=== PATIENT | female | born 1965 | race Caucasian/White ===

== ENCOUNTER 2020-02-20 15:31 | Outpatient (CLI) | payer OTHER, SELFPAY ==
--- NOTE | ~2020-02-20 | XR_ITS ---
XR foot LT min 3V DATE: 02/20/2020 15:48 INDICATION: Left foot contusion, pain TECHNIQUE: 4 views COMPARISON: None FINDINGS: No fracture or dislocation, periosteal reaction or bone destruction. IMPRESSION: Negative Reviewed, dictated and finalized at location A. IMPRESSION: Negative
== END 2020-02-20 15:32 | disposition home or self-care (01) ==
PROVIDERS: PCP Family Medicine; Visit Provider Family Medicine
DX: S90.30XA Contusion of unspecified foot, initial encounter (principal); R26.2 Difficulty in walking, not elsewhere classified
CPT/HCPCS: 73630

== ENCOUNTER 2025-05-14 09:26 | Outpatient (CLI) | payer OTHER, SELFPAY ==
[2025-05-14 10:05] LABS: Hematocrit 35.2 % (37.0-47.0); Hemoglobin 11.8 g/dL (12.0-15.0); Immature Granulocyte Percent A 0.3 % (0-0.5); Lymphocytes Absolute Auto 2.21 K/mm3 (0.9-3.2); Mean Corpuscular HGB Conc 33.5 g/dl (32-36); Mean Corpuscular Hemoglobin 28.9 pg (26-34); Mean Corpuscular Volume 86.3 fl (80-100); Nucleated Red Blood Cells Absolute Auto 0.000 K/mm3 (0.0-0.012); Nucleated Red Blood Cells Perc 0.0 % (0.0-0.2); Platelet Count Result 269 k/mm3 (150-375); Red Blood Count 4.08 M/mm3 (4.2-5.4); White Blood Count 8.0 K/mm3 (4.5-10.0)
--- OUTSIDE RECORDS SUMMARY | 2025-05-14 10:10 | XMS_ITS | Clinical Summary ---
Author Organization [facility] Address [facility] access [facility] [place] [address] Care Team Providers Care Science Writer Name Role Phone Unavailable Primary Care Provider Unavailabl e Social History Tobacco Use Types Packs/Day Years Used Date Smoking Tobacco: Never Assessed Comments Unknown Sex and Gender Information Value Date Recorded Sex Assigned at Not on file Legal Sex Female 4:58 PM CDT Gender Identity Not on file Sexual Orientation Not on file Plan of Treatment Health Maintenance Due Date Last Done Comments Cervical Cancer Screening Pa p Smear (Age 30 to 64) Every 3 Years 1965 Colorectal Cancer Screening Colonoscopy (10 Years) 1965 Annual Physical 1968 Hepatitis C 1983 DTaP, Tdap and Td Vaccines ( 1 - Tdap) 1984 Cervical Cancer Screening Pa p with HPV Testing (Age 30 to 64) Every 5 Years 1995 Cervical Cancer Screening with HPV 1995 Mammogram Screening 2005 Pneumococcal Vaccine: 50+ Ye ars (1 of 1 - PCV) 2015 Zoster Vaccines (1 of 2) 2015 COVID-19 Vaccine ( - 2024-2 6 season) 2025 Influenza Adult (#1) 2025 RSV Immunization or 60+ Years (1 - 1-dose 75+ series) 2040 Hepatitis A Vaccines Aged Out No long er eligible based on patient's age to complete this topic Meningococcal B Vaccine Aged Out No l onger eligible based on patient's age to complete this topic Meningococcal Vaccine Aged Out No areli palmer eligible based on patient's age to complete this topic RSV Immunizations Under 20 Months Aged Out No longer eligible based on patient's age to complete this topic Insurance
[2025-05-14 10:26] LABS: Alanine Aminotransferase 23 U/L (6-35); Albumin Level 4.4 g/dL (3.5-5.1); Alkaline Phosphatase 97 U/L (38-126); Anion Gap 11 mmol/L (4-12); Aspartate Amino Transferase 32 U/L (14-36); Bilirubin,Total 0.6 mg/dL (0.2-1.3); Blood Urea Nitrogen 12 mg/dL (7-17); Calcium 9.3 mg/dL (8.4-10.2); Carbon Dioxide 23 mmol/L (22-30); Chloride 103 mmol/L (98-107); Cholesterol 239 mg/dL (0-200); Estimated Glomerular Filt Rate > 60; Glucose 99 mg/dL (65-110); HDL Direct 57 mg/dL; Potassium 4.0 mmol/L (3.4-5.0); Sodium 137 mmol/L (137-145); Total Protein 8.0 g/dL (6.3-8.2); Triglycerides 149 mg/dL (<150)
== END 2025-05-14 09:27 | disposition home or self-care (01) ==
PROVIDERS: PCP Family Medicine; Visit Provider Student in an Organized Health Care Education/Training Program
DX: Z13.220 Encounter for screening for lipoid disorders (principal); I10 Essential (primary) hypertension
CPT/HCPCS: 36415; 80053; 80061; 85025

== ENCOUNTER 2025-05-25 12:20 | Outpatient (CLI) | payer OTHER, SELFPAY ==
--- NOTE | ~2025-05-25 | MR_ITS ---
EXAMINATION: MR brain/brain stem wo con DATE: 05/25/2025 13:06 INDICATION: Cerebral infarction TECHNIQUE: Magnetic resonance imaging (MRI) of the brain and brainstem was performed without intravenous contrast. Sequences included sagittal and axial T1-weighted SE, axial diffusion-weighted FS SE, axial 3D SWAN, axial T2-weighted FLAIR, and axial T2-weighted FSE. Apparent diffusion coefficient (ADC) maps were created. COMPARISON: 09/11/11 FINDINGS: There are no areas of restricted diffusion to suggest acute infarction. No intracranial hemorrhage or abnormal intracranial mass lesion. There are no intraparenchymal signal abnormalities seen on the other pulse sequences. The ventricles are symmetric and normal in size. There are no abnormal extra-axial fluid collections. Flow voids are seen in the cerebral arteries on the T2- weighted sequences consistent with their expected patency. Fluid filling an agger nasi cell. Remainder of the paranasal sinuses are clear. Visualized orbits and soft tissues are unremarkable. IMPRESSION: 1. Normal for age brain. No acute intracranial process. Reviewed, dictated and finalized at location A. TRANSFER CLERK
== END 2025-05-25 12:21 | disposition home or self-care (01) ==
PROVIDERS: PCP Family Medicine
DX: I63.9 Cerebral infarction, unspecified (principal)
CPT/HCPCS: 70551

== ENCOUNTER 2025-05-30 09:57 | Outpatient (CLI) | payer OTHER, SELFPAY ==
--- NOTE | ~2025-05-30 | US_ITS ---
EXAMINATION: US carotid duplex BI DATE: 05/30/2025 10:40 INDICATION: Cerebral infarction TECHNIQUE: Grayscale, color Doppler, and pulsed Doppler images of the cervical carotid arteries were obtained. The degree of vessel stenosis is placed in one of the following categories: normal, <50%, 50-69%, >=70% but less than near- occlusion, near-occlusion, or total occlusion. Note that percent stenosis relative to normal distal artery lumen diameter is indirectly measured from velocity measurements as described by Josemanuel, et al. Radiology 2003; 229:340-346. COMPARISON: None. FINDINGS: RIGHT: The right common carotid artery (CCA) peak systolic velocity (PSV) is 60 cm/s. The right internal carotid artery (ICA) PSV is 63 cm/s. The right ICA end- diastolic velocity (EDV) is 25 cm/s. The right ICA/CCA PSV ratio is 1.3. Grayscale and color Doppler images yield an estimate of <50% diameter reduction from plaque in the ICA. The external carotid artery (ECA) PSV is 66 cm/s. There is antegrade flow in the right vertebral artery. LEFT: The left CCA PSV is 42 cm/s. The left ICA PSV is 59 cm/s. The left ICA EDV is 24 cm/s. The left ICA/CCA PSV ratio is 1.4. Grayscale and color Doppler images yield an estimate of <50% diameter reduction from plaque in the ICA. The ECA PSV is 49 cm/s. There is antegrade flow in the left vertebral artery. IMPRESSION: 1. <50% stenosis from minimal plaque in the right internal carotid artery. 2. <50% stenosis from minimal plaque in the left internal carotid artery. Reviewed, dictated and finalized at location A. N CLEANER
== END 2025-05-30 09:58 | disposition home or self-care (01) ==
PROVIDERS: PCP Family Medicine
DX: I65.23 Occlusion and stenosis of bilateral carotid arteries (principal); I63.9 Cerebral infarction, unspecified
CPT/HCPCS: 93880

== ENCOUNTER 2025-06-01 14:50 | Outpatient (CLI) | payer OTHER, SELFPAY ==
--- NOTE | ~2025-06-01 | CT_ITS ---
EXAMINATION:CT lung screening DATE: 06/01/2025 15:07 INDICATION: 22 pack year history smoking smoking, prior to quitting. TECHNIQUE: Computed tomography (CT) of the chest was performed without intravenous contrast. Automated exposure control and iterative reconstruction technique were employed. The dose-length product (DLP) was 49.90 mGy-cm. COMPARISON: None previous available FINDINGS: Moderate centrilobular pattern of emphysema lungs. Calcified granuloma right lung base. No evidence of noncalcified lung nodules are seen. Minimal linear fibrosis left lung base. Cardiomegaly with small pericardial effusion measuring up to 7 mm in width. IMPRESSION: 1. Emphysema of lungs. Calcified granuloma right lower lobe. Mild linear fibrotic changes of the left lower lobe with minimal traction bronchiectasis. Continue annual screening. Lung RADS category 2 2. Cardiomegaly. Small pericardial effusion. Reviewed, dictated and finalized at location T. RTING OPERATOR IMPRESSION: 1. Emphysema of lungs. Calcified granuloma right lower lobe. Mild linear fibrot ic changes of the left lower lobe with minimal traction bronchiectasis. Continu e annual screening. Lung RADS category 2 2. Cardiomegaly. Small pericardial effusion.
--- OUTSIDE RECORDS SUMMARY | 2025-06-01 14:55 | XMS_ITS | Clinical Summary ---
Author Organization [facility] Address [facility] [place] [address] Care Team Providers Care Electronic Science Teacher Name Role Phone Unavailable Primary Care Provider [...]
== END 2025-06-01 14:51 | disposition home or self-care (01) ==
PROVIDERS: PCP Family Medicine; Visit Provider Student in an Organized Health Care Education/Training Program
DX: Z12.2 Encounter for screening for malignant neoplasm of respiratory organs (principal); Z87.891 Personal history of nicotine dependence
CPT/HCPCS: 71271

== ENCOUNTER 2025-06-14 08:26 | Outpatient (CLI) | payer OTHER, SELFPAY ==
--- OUTSIDE RECORDS SUMMARY | 2025-06-14 08:47 | XMS_ITS | Clinical Summary ---
Author Organization [facility] Address [facility] [place] [address] Care Team Providers Care Vector Control Specialist Name Role Phone Unavailable Primary Care Provider [...]
--- OUTSIDE RECORDS SUMMARY | 2025-06-14 08:47 | XMS_ITS | Clinical Summary ---
Author Organization [facility] Address [address] [address] Care Team Providers Care Export Sales Assistant Name Role Phone Unavailable Primary Care Provider Unavailabl e Source Comments [facility],non-owned Affiliates and Associated Physician Practices is amultiple site organization consisting of ambulatory clinics and hospital sitesin [place], [place], [place] and [place]. This disclosure is being madepursuant to the Care Everywhere program and may not contain all information available regarding this patient. Last updated 18.[facility] Encounters Date Type Department Care Team Description 06/06/2025 2:15 PM EDUCATION DIAGNOSTICIAN - 06/06/2025 11:59 PM EDUCATION DIAGNOSTICIAN Hospital Encounter [facility] [address] [place] [address] None, Physician Discharge Disposition: Home or Self Care from Last 3 Months Social History Tobacco Use Types Packs/Day Years Used Date Smoking Tobacco: Never Assessed Comments Unknown Sex and Gender Information Value Date Recorded Sex Assigned at Not on file Legal Sex Female 2:01 PM EDUCATION DIAGNOSTICIAN Gender Identity Not on file Sexual Orientation Not on file Plan of Treatment Health Maintenance Due Date Last Done Comments COLOGUARD (AGES 45-75) - COL ON CA SCREENING 1965 COLON MONITORING 1965 COLONOSCOPY - COLON CA SCREENING 1965 CT COLONOGRAPHY - COLON CA SCREENING 1965 Colorectal Cancer Screening 1965 FIT - COLON CA SCREENING 1965 FLEX SIG - COLON CA SCREENING 1965 LIPID TESTING 1965 MAMMOGRAM 1965 HIV SCREENING 1980 HEPATITIS C SCREENING 04/22/1983 DTAP/TDAP/TD VACCINES (1 - Tdap) 1984 PAP SMEAR 1986 Cervical Cancer Screening 1995 PAP with HPV 1995 PNEUMOCOCCAL VACCINE 50+ (1 of 1 - PCV) 2015 ZOSTER VACCINE (1 of 2) 2015 DEPRESSION SCREENING 07/12/2024 COVID-19 VACCINE (1 - 2024-2 6 season) 2025 INFLUENZA VACCINE (#1) 2025 Respiratory Syncytial Virus (RSV) Vaccine Pt: or over 60 yrs (1 - 1-dose 75+ series) 2040 HEPATITIS B VACCINE Aged Out No longe r eligible based on patient's age to complete this topic HIB VACCINE Aged Out No longer eligi ble based on patient's age to complete this topic HPV VACCINE Aged Out No longer eligi ble based on patient's age to complete this topic MENINGOCOCCAL (Group B) VACC INE SHARED DECISION-MAKING Aged Out No longer eligibl e based on patient's age to complete this topic MENINGOCOCCAL GROUPS A/C/Y/W VACCINE Aged Out No longer eligible b ased on patient's age to complete this topic Procedures Procedure Name Priority Date/Time Associated Diagnosis Comments FTA ANTIBODY Routine 06/06/2025 2:27 PM EDUCATION DIAGNOSTICIAN Early stage nonexudative age-related macular degeneration of right eye ANGIOTENSIN CONVERTING ENZYME BLOOD Routine 06/06/2025 2:27 PM EDUCATION DIAGNOSTICIAN Early stage nonexudative age-related macular degeneration of right eye LYME DISEASE AB IGG WB Routine 06/06/2025 2:27 PM EDUCATION DIAGNOSTICIAN Early stage nonexudative age-related macular degeneration of right eye BARTONELLA HENSELAE IGG/IGM AB PANEL Routine 06/06/2025 2:27 PM EDUCATION DIAGNOSTICIAN Early stage nonexudative age-related macular degeneration of right eye from Last 3 Months Results * LYME DISEASE AB IGG WB (06/06/2025 2:27 PM EDUCATION DIAGNOSTICIAN) Borrelia burgdorferi Antibody IgG WB Negative Negative 06/09/2025 3:29 PM EDUCATION DIAGNOSTICIAN [facility] ([facility]) Comment: Band(s) present: 66, 41 kDa (Insufficient number of bands for positive result) INTERPRETIVE INFORMATION: B. burgdorferi IgG Immunoblot For this assay, a positive result is reported when any 5 or more of the following 10 bands are present: 18, 23, 28, 30, 39, 41, 45, 58, 66, or 93 kDa. All other banding patterns are reported as negative. Performed By: [facility] [address] [place] [address] Warehouse Laborer: Luis Alberto Jacob MD, PhD CLIA Number: [id number] Blood BLOOD SPECIMEN / Unknown Venipuncture / Unknown 06/06/2025 2:27 PM EDUCATION DIAGNOSTICIAN 06/06/2025 2:36 PM EDUCATION DIAGNOSTICIAN Sigrid Briggs MD LAB - SEROLOGY ORDERABLES Final Result [facility] [employer] ([facility]) [address] [place] [address] * (ABNORMAL) BARTONELLA HENSELAE ANTIBODY PANEL (06/06/2025 2:27 PM EDUCATION DIAGNOSTICIAN) [facility] Bartonella henselae Antibody IgG >1:1024(H ) <1:64 06/12/2025 12:33 PM EDUCATION DIAGNOSTICIAN [facility] [employer] ([facility]) Comment: INTERPRETIVE INFORMATION: Bartonella henselae Ab, IgG Less than 1:64 ....... Negative: No significant level of Bartonella henselae IgG antibody detected. 1:64 - 1:128 ......... Equivocal: Questionable presence of Bartonella henselae IgG antibody detected. Repeat testing in 10-14 days may be helpful. 1:256 or greater ..... Positive: Presence of IgG antibody to Bartonella henselae detected, suggestive of current or past infection. A low positive suggests past exposure or infection, while high positive results may indicate recent or current infection, but are inconclusive for diagnosis. Seroconversion between acute and convalescent sera is considered strong evidence of recent infection. The best evidence for infection is significant change on two appropriately timed specimens where both tests are done in the same laboratory at the same time. This test was developed and its performance characteristics determined by [facility]. It has not been cleared or approved by the US Food and Drug Administration. This test was performed in a CLIA certified laboratory and is intended for clinical purposes. Bartonella henselae Antibody IgM < 1:16 <1:16 06/12/2025 12:33 PM EDUCATION DIAGNOSTICIAN [facility] [employer] ([facility]) Comment: INTERPRETIVE INFORMATION: Bartonella henselae Antibody, IgM Less than 1:16 ...... Negative: No significant level of Bartonella henselae IgM antibody detected. 1:16 or greater ..... Positive: Presence of IgM antibody to Bartonella henselae detected, suggestive of current or recent infection. The presence of IgM antibodies suggest recent infection, low levels of IgM antibodies may occasionally persist for more than 12 months post infection. This test was developed and its performance characteristics determined by [facility]. It has not been cleared or approved by the [place] Food and Drug Administration. This test was performed in a CLIA certified laboratory and is intended for clinical purposes. Performed By: [facility] [address] [place] [address] Warehouse Laborer: Luis Alberto Jacob MD, PhD CLIA Number: [id number] Blood BLOOD SPECIMEN / Unknown Venipuncture / Unknown 06/06/2025 2:27 PM EDUCATION DIAGNOSTICIAN 06/06/2025 2:36 PM EDUCATION DIAGNOSTICIAN Sigrid Briggs MD LAB - SEROLOGY ORDERABLES Final Result Performing Organization Address [facility] Co de Phone Number [facility]) [address] [place] [address] * FTA ANTIBODY (06/06/2025 2:27 PM EDUCATION DIAGNOSTICIAN) FTA Antibody IgG Non Reactive Non Reactive 06/09/2025 4:40 PM EDUCATION DIAGNOSTICIAN [facility] ([facility]) Comment: Performed By: [facility] [address] [place] [address] Warehouse Laborer: Luis Alberto Jacob MD, PhD CLIA Number: [id number] Blood BLOOD SPECIMEN / Unknown Venipuncture / Unknown 06/06/2025 2:27 PM EDUCATION DIAGNOSTICIAN 06/06/2025 2:36 PM EDUCATION DIAGNOSTICIAN Sigrid Briggs MD LAB - CHEMISTRY ORDERABLES Final Result Performing Organization Address City/[facility]/ZIP Co de Phone Number [employer] ([facility]) [address] * ANGIOTENSIN CONVERT ENZYME BLOOD (06/06/2025 2:27 PM EDUCATION DIAGNOSTICIAN) Angiotensin-Conve rting Enzyme 42 16 - 85 U/L 06/08/2025 11:25 PM EDUCATION DIAGNOSTICIAN [facility] ([facility]) Comment: Performed By: [facility] [address] [place] [address] Warehouse Laborer: Luis Alberto Jacob MD, PhD CLIA Number: [id number] Blood BLOOD SPECIMEN / Unknown Venipuncture / Unknown 06/06/2025 2:27 PM EDUCATION DIAGNOSTICIAN 06/06/2025 2:37 PM EDUCATION DIAGNOSTICIAN Sigrid Briggs MD LAB - CHEMISTRY ORDERABLES Final Result Performing Organization Address City/[facility]/ZIP Co de Phone Number [employer] ([facility]) [address] [place] [address] from Last 3 Months Insurance
--- NOTE | 2025-06-14 09:01 | ECHO_ITS ---
Patient Info Name: Tiffanie Galvez Age: 60 years : 1965 Gender: Female Ht: 57 in Wt: 92 lbs BSA: 1.30 m2 HR: 77 bpm BP: 177 / 99 mmHg Heart Rhythm: Sinus Rhythm Technical Quality: Good Exam Date: 06/14/2025 9:56 AM Patient Status: O Admit Date: 06/14/2025 Exam Type: CA echo doppler w bubble study Complete two-dimensional, color flow and Doppler transthoracic echocardiogram is performed with agitated saline. Skin Carver: Kelton Montoya Attending Provider: Kavitha Pan Contrast/Agitated Saline Contrast/Ag. Saline: Agitated Saline Amount: 20.00 ml New IV Access: Right and Antecubital Space Site Condition: IV removed, Site dressing applied and No extravasation Summary 1. Left ventricular chamber dimension is mildly enlarged. 2. Left ventricular systolic function is preserved, estimated at 50-55. 3. The left ventricular diastolic function is grade I diastolic dysfunction. 4. The aortic valve is not well visualized. Cannot determine number of aortic valve leaflets. Left Ventricle Left ventricular chamber dimension is mildly enlarged. Left ventricular systolic function is preserved, estimated at 50-55. The left ventricular diastolic function is grade I diastolic dysfunction. Tissue doppler E/e' was not performed. Right Ventricle Right ventricular chamber dimension is normal. Right ventricular systolic function is normal. Left Atria Left atrial chamber dimension is normal. Right Atria Right atrial chamber dimension is normal. Atrial Septum Interatrial septum not well visualized by 2D, color flow and agitated saline imaging. Agitated saline injection with and without valsalva maneuver opacified right side cardiac chambers without shunt to left side cardiac chambers. Aortic Valve The aortic valve is not well visualized. Cannot determine number of aortic valve leaflets. There is no aortic valve stenosis. There is no aortic valve regurgitation. Pulmonic Valve There is no pulmonic regurgitation. Mitral Valve There is no mitral valve stenosis. There is no mitral valve regurgitation. Tricuspid Valve There is no tricuspid valve regurgitation. Pericardium/Pleural There is no pericardial effusion. Inferior Vena Cava Normal inferior vena cava with >50% collapse upon inspiration consistent with normal right atrial pressure, 5 mmHg. Aorta The aortic root size at the sinus of Valsalva is normal. Left Ventricular Outflow Tract Name Value Normal LVOT 2D LVOT Diameter 1.8 cm LVOT Doppler LVOT Peak Velocity 118 cm/s LVOT Peak Gradient 6 mmHg LVOT Mean Gradient 1 mmHg LVOT VTI 14 cm LVOT Stroke Volume 34 ml LVOT CO 2.6 l/min LVOT CI 2.0 l/min/m2 Pulmonic Valve Name Value Normal PV 2D RVOT Diameter (2D) 1.9 cm 1.7-2.7 RVOT Doppler RVOT Peak Velocity 39 cm/s RVOT Peak Gradient 1 mmHg PV Doppler PV Peak Velocity 70 cm/s PV Peak Gradient 2 mmHg PV Area (Cont Eq Eusebio) 1.5 cm2 PV Area Index (Cont Eq Eusebio) 1.17 cm2/m2 Mitral Valve Name Value Normal MV Doppler MV Peak Gradient 3 mmHg MV Mean Gradient 1 mmHg MV Area (Cont Eq VTI) 1.9 cm2 Tricuspid Valve Name Value Normal TV Regurgitation Doppler TR Peak Velocity 102 cm/s TR Peak Gradient 4 mmHg Estimated PAP/RSVP RA Pressure 5 mmHg <=5 PA Systolic Pressure 9 mmHg <36 RV Systolic Pressure 9 mmHg <36 TV Annular TDI TV Lateral Hellen s' Velocity 22.6 cm/s >=9.5 Aorta Name Value Normal Ascending Aorta Ao Root Diameter (MM) 2.3 cm Ao Root Diam Index (MM) 1.8 cm/m2 Aortic Valve Name Value Normal AV Regurgitation 2D LVOT Area 2.5 cm2 Ventricles Name Value Normal LV Dimensions 2D/MM IVS Diastolic Thickness (2D) 0.8 cm 0.6-1.0 LVID Diastole (2D) 4.0 cm 3.8-5.2 LVIW Diastolic Thickness (2D) 0.8 cm 0.6-0.9 LVID Systole (2D) 2.8 cm 2.2-3.5 LVOT Diameter 1.8 cm LV Mass (2D Cubed) 90.19 g 67.00-162.00 LV Mass Index (2D Cubed) 70 g/m2 43-95 Relative Wall Thickness (2D) 0.40 <=0.42 LV Fractional Shortening/Ejection Fraction 2D/MM LV Fractional Shortening (2D) 29 % 27-45 LV EF (2D Teichholz) 56 % LV Diastolic Volume (4C MOD) 34 ml LV EF (4C MOD) 61 % LV Diastolic Volume (2C MOD) 47 ml LV EF (2C MOD) 47 % LV Diastolic Volume (BP MOD) 41 ml 46-106 LV Diastolic Volume Index (BP MOD) 32 ml/m2 29-61 LV Systolic Volume (BP MOD) 27 ml 14-42 LV Systolic Volume Index (BP MOD) 20 ml/m2 8-24 LV EF (BP MOD) 36 % 54-74 LV Diastolic Length (4C) 5.0 cm LV Systolic Length (4C) 3.7 cm LV Stroke Volume (4C MOD) 21 ml LV CO (BP MOD) 1.7 l/min LV CI (BP MOD) 1.3 l/min/m2 Atria Name Value Normal LA Dimensions LA Dimension (MM) 3.3 cm 2.7-3.8 LA Volume (4C A-L) 15 ml LA Volume (BP A-L) 6 ml RA Dimensions RA Area (4C) 4.1 cm2 <=18.0 Report Signatures
== END 2025-06-14 08:27 | disposition home or self-care (01) ==
LOC: ANHCARD 08:30
PROVIDERS: PCP Family Medicine
DX: I63.9 Cerebral infarction, unspecified (principal); I51.89 Other ill-defined heart diseases
CPT/HCPCS: 93306; 96375